=== PATIENT | male | born 1980 | race Caucasian/White ===

== ENCOUNTER 2021-11-30 18:35 | Emergency (ER) | payer SELFPAY ==
[~2021-11-30] VITALS: Ht 167.6 cm; Wt 50.0 kg
[2021-11-30 18:46] VITALS: BP 132/88
[2021-11-30] MEDS ORDERED: SODIUM CHLORIDE 0.9% 1,000 ML IV ONE (19:15)
[2021-11-30] MEDS ORDERED: MIDAZOLAM HCL 2 MG/2 ML VIAL IM ONE (19:15)
[2021-11-30] MEDS ORDERED: OLANZAPINE 10 MG/VIAL IM ONE (19:15)
== END 2021-11-30 20:56 | disposition left against medical advice (07) ==
LOC: ER 18:35
DX: F91.8 Other conduct disorders (principal)
CPT/HCPCS: 99283; J7030